=== PATIENT | male | born 1935 ===

== ENCOUNTER 2016-12-23 13:41 | Emergency (ER) | payer MEDICARE ==
[2016-12-23 13:48] VITALS: BP 149/63; PULSE 93; RESP 20; TEMP 98.1; O2SAT 96
[2016-12-23] MEDS ORDERED: Sodium Chloride 0.9% 500 ML IV STA (14:05)
--- NOTE | 2016-12-23 14:12 | ED PDOC ---
HPI: Seizure Time Seen by Provider: 12/23/16 14:02 Chief Complaint (Nursing): Seizure Chief Complaint (Provider): seizure History Per: Patient, EMS History/Exam Limitations: no limitations Quality Of Seizure: Generalized Additional Complaint(s): 81yo male brought in by EMS after a bystander witnesed patient experiencing a seizure. Described by EMS as generalized tonic clonic associated with 1x episode of incontinence. Patient was post-ictal on EMS arrival. Patient does not know what happened but states he is incompliance with medications. Denies any severe pain though reports body aches and headaches. No focal weakness or numbness. No blurred vision. No alcohol or drug use. Last meal 1300 today. Does not know name of PMD Past Medical History Reviewed: Historical Data, Nursing Documentation, Vital Signs Vital Signs: Last Vital Signs Temp 98.1 F 12/23/16 13:45 Pulse 93 H 12/23/16 13:45 Resp 20 12/23/16 13:45 BP 149/63 12/23/16 13:45 Pulse Ox 96 12/23/16 16:54 - Medical History PMH: HTN, Seizures - Family History Family History: States: Unknown Family Hx - Social History Current smoker - smoking cessation education provided: No Alcohol: None Drugs: Denies - Immunization History Hx Tetanus Toxoid Vaccination: No Hx Influenza Vaccination: No Hx Pneumococcal Vaccination: No - Home Medications Home Medications: Ambulatory Orders Medication Instructions Recorded Enalapril Maleate [Vasotec] 20 mg PO DAILY 09/09/16 NIFEdipine ER [Procardia XL] 90 mg PO DAILY 09/09/16 Simvastatin 40 mg PO HS 09/09/16 Terazosin [Hytrin] 2 mg PO DAILY 09/09/16 hydroCHLOROthiazide [Microzide] 50 mg PO DAILY 09/09/16 Carbamazepine 200 mg PO TID 30 Days 12/23/16 - Allergies Allergies/Adverse Reactions: Allergies Allergy/AdvReac Type Severity Reaction Status Date / Time No Known Allergies Allergy Verified 12/23/16 13:45 Review of Systems ROS Statement: Except As Marked, All Systems Reviewed And Found Negative Eyes: Negative for: Vision Change Genitourinary Male: Positive for: Incontinence Neurological: Positive for: Seizures, Headache. Negative for: Weakness, Numbness Physical Exam - Reviewed Nursing Documentation Reviewed: Yes Vital Signs Reviewed: Yes - Physical Exam Appears: Positive for: Well, Non-toxic, No Acute Distress Head Exam: Positive for: NORMAL INSPECTION, NORMOCEPHALIC. Negative for: ATRAUMATIC (+pinpoint abrasion left upper forehead with moderate hematoma, minimal tenderness to palpation at site) Skin: Positive for: Warm, Dry Eye Exam: Positive for: EOMI, PERRL ENT: Positive for: Other (Tacky mucous membranes. Poor dentition) Neck: Positive for: Painless ROM (+mild tendereness to paraspinal. No midline bony tenderness. ) Cardiovascular/Chest: Positive for: Regular Rate, Rhythm Respiratory: Positive for: Normal Breath Sounds. Negative for: Rales, Rhonchi, Wheezing Gastrointestinal/Abdominal: Positive for: Soft. Negative for: Tenderness Extremity: Positive for: Normal ROM Neurologic/Psych: Positive for: Alert, Oriented (x). Negative for: Motor/ Sensory Deficits - Laboratory Results Result Diagrams: 12/23/16 14:19 12/23/16 14:19 - ECG O2 Sat by Pulse Oximetry: 96 (RA) Pulse Ox Interpretation: Normal Medical Decision Making Medical Decision Makin Impression: seizure Plan: CT Head w/o CT C-Spine w/o Labs IV Fluids reassess Previous chart demonstrates pt's PMD Dr Dione Blanca Pharmacist contacted pt's pharmacy and he has not filled carbamezepine since 2015 Reviewed previous charts and pt has multiple visits [facility] and [facility] for breakthrough seizure, last Aug 2016. On questioning he does not see a neurologist regularly. He sees his PMD Dr Blanca, but did not remember his name, only his office address. Pt refusing head ct. He is oriented x 3, understands risk of possible head bleed /fracture and refuses anyway. Potassium low on bloodwork, and there is no therapeutic carbamazepime level. Stressed importance of taking medication to prevent seizure and following up with PMD and Neurologist (referral to Dr Tellez given.) Disposition - Clinical Impression Clinical Impression: Seizure, Hypokalemia Counseled Patient/Family Regarding: Studies Performed, Diagnosis, Need For Followup, Rx Given - Disposition Referrals: [facility] [Outside] [facility] [Outside] Edy Tellez MD [Medical Doctor] - Disposition Time: 16:00 Condition: IMPROVED Additional Instructions: LLAMA A LA CLINICA POR LA MANANA A HACER DONN NURY EN 2-3 MOTTA. Y TAMBIEN POR LA MANANA LLAME A LA OFICINA DE DR TELLEZ (NEUROLOGO) A HACER DONN NURY EN 5-7 MOTTA. HAZEL TODOS CHRISTAL MEDICAMENTOS DIARIAMENTE. Prescriptions: Carbamazepine 200 mg PO TID 30 Days Instructions: Hypokalemia (ED), Epilepsy (ED) Print Language: TURKMEN Additional Comments - Additional Comments Additional Comments: Scribe Attestation: Documented by Matteo Veloz acting as a scribe for Leelee Weber MD. Provider Scribe Attestation: All medical record entries made by the Scribe were at my direction and personally dictated by me. I have reviewed the chart and agree that the record accurately reflects my personal performance of the history, physical exam, medical decision making, and the department course for this patient. I have also personally directed, reviewed, and agree with the discharge instructions and disposition.
[2016-12-23 14:25] LABS: BASO % 0.3 % (0.0-2.0); EOS # 0.1 K/uL (0.0-0.7); EOS % 2.4 % (0.0-4.0); HEMATOCRIT 41.8 % (35.0-51.0); LYMPH # 1.6 K/uL (1.0-4.3); LYMPH % 34.7 % (20.0-40.0); MEAN CELL VOLUME 99.1 fl (80.0-94.0); MEAN CORPUSCULAR HEMOGLOBIN 33.2 pg (27.0-31.0); MEAN CORPUSCULAR HGB CONC 33.5 g/dL (33.0-37.0); MEAN PLATELET VOLUME 9.3 fl (7.2-11.7); MONO # 0.6 K/uL (0.0-0.8); MONO % 13.3 % (0.0-10.0); NEUT # 2.3 K/uL (1.8-7.0); NEUT % 49.3 % (50.0-75.0); NRBC % 0.4 % (0.0-0.0); RED CELL DISTRIBUTION WIDTH 12.3 % (11.5-14.5); WHITE BLOOD COUNT 4.7 K/uL (4.8-10.8)
[2016-12-23 14:51] LABS: PARTIAL THROMBOPLASTIN TIME 25.4 SECONDS (23.3-32.5)
[2016-12-23 14:53] LABS: ALB/GLOB RATIO 1.3 (1.0-2.1); ALCOHOL SERUM < 10 mg/dl (0-10); ALKALINE PHOSPHATASE 87 U/L (38-126); ALT/SGPT 28 U/L (21-72); AST/SGOT 30 U/L (17-59); BILIRUBIN,TOTAL 1.5 mg/dl (0.2-1.3); BLOOD UREA NITROGEN 17 mg/dl (9-20); CALCIUM 9.5 mg/dL (8.4-10.2); CARBON DIOXIDE 28 mmol/L (22-30); CHLORIDE 96 mmol/L (98-107); GFR AFRICAN-AMERICAN > 60; GLUCOSE,RANDOM 101 mg/dL (75-110); MAGNESIUM 1.8 MG/DL (1.6-2.3); POTASSIUM 3.1 MMOL/L (3.6-5.0); SODIUM 137 mmol/l (132-148); TOTAL PROTEIN 7.5 G/DL (6.3-8.2)
[2016-12-23] MEDS ORDERED: K-Lyte 25meq EF Tab PO ONE ×2 (15:08→15:52)
[2016-12-23] MEDS ORDERED: TDAP Vaccine 0.5 mL Syr IM ONE (15:55)
--- NOTE | 2016-12-24 08:24 | CARD ---
APPROVED REPORT EKG Measurement Heart [id number] <Conclusion> Normal sinus rhythm Nonspecific T wave abnormality Abnormal ECG
== END 2016-12-23 17:41 | disposition home or self-care (01) ==
LOC: H.ER 13:41
DX: R56.9 Unspecified convulsions (principal); E87.6 Hypokalemia; I10 Essential (primary) hypertension; Z23 Encounter for immunization
CPT/HCPCS: 80053; 80156; 82550; 82948; 83605; 83735; 84100; 84484; 85025; 85610; 85730; 90471; 90715; 93005; 99285; G0480; J7040

== ENCOUNTER 2017-03-16 14:02 | Emergency (ER) | payer MEDICARE ==
--- NOTE | 2017-03-16 14:39 | ED PDOC ---
HPI: Seizure Time Seen by Provider: 03/16/17 14:11 Chief Complaint (Nursing): Seizure Chief Complaint (Provider): Seizure History Per: EMS History/Exam Limitations: no limitations Recent Seizure Activity Began: Just Before Arrival Additional History Per: Patient Additional Complaint(s): Rojas Chiu is a 81 year old male, with a past medical history of seizures, who was brought to the emergency department via EMS after bystanders called for a witnessed seizure while [place]. EMS report finding the patient alert and awake on arrival. Patient is unsure why he is in the ED and has no recollection of experiencing a seizure. He denies any headache or chest pain. Patient states he takes his daily medication for seizures but is unsure of the name. PMD: Dr Blanca Past Medical History Reviewed: Historical Data, Nursing Documentation, Vital Signs Vital Signs: Last Vital Signs Temp 98.9 F 03/16/17 14:03 Pulse 104 H 03/16/17 14:03 Resp 18 03/16/17 14:03 BP 131/89 03/16/17 14:03 Pulse Ox 98 03/16/17 15:34 - Medical History PMH: HTN, Seizures - Surgical History Surgical History: No Surg Hx - Family History Family History: States: Unknown Family Hx - Immunization History Hx Tetanus Toxoid Vaccination: No Hx Influenza Vaccination: No Hx Pneumococcal Vaccination: No - Home Medications Home Medications: Ambulatory Orders Medication Instructions Recorded Enalapril Maleate [Vasotec] 20 mg PO DAILY 09/09/16 NIFEdipine ER [Procardia XL] 90 mg PO DAILY 09/09/16 Simvastatin 40 mg PO HS 09/09/16 Terazosin [Hytrin] 2 mg PO DAILY 09/09/16 hydroCHLOROthiazide [Microzide] 50 mg PO DAILY 09/09/16 Carbamazepine 200 mg PO TID 30 Days 12/23/16 - Allergies Allergies/Adverse Reactions: Allergies Allergy/AdvReac Type Severity Reaction Status Date / Time No Known Allergies Allergy Verified 12/23/16 13:45 Review of Systems ROS Statement: Except As Marked, All Systems Reviewed And Found Negative Cardiovascular: Negative for: Chest Pain Neurological: Positive for: Seizures (according to EMS). Negative for: Weakness , Headache Physical Exam - Reviewed Nursing Documentation Reviewed: Yes Vital Signs Reviewed: Yes - Physical Exam Appears: Positive for: Well, Non-toxic, No Acute Distress Head Exam: Positive for: ATRAUMATIC, NORMAL INSPECTION, NORMOCEPHALIC Skin: Positive for: Normal Color, Warm, Dry Eye Exam: Positive for: EOMI, Normal appearance, PERRL ENT: Positive for: Normal ENT Inspection Neck: Positive for: Normal, Painless ROM, Supple Cardiovascular/Chest: Positive for: Regular Rate, Rhythm. Negative for: Tachycardia Respiratory: Positive for: Normal Breath Sounds. Negative for: Respiratory Distress Gastrointestinal/Abdominal: Positive for: Normal Exam, Soft. Negative for: Tenderness Extremity: Positive for: Normal ROM Neurologic/Psych: Positive for: Alert, fabrication inspector II-XII (intact), Oriented (x3), Gait (steady). Negative for: Motor/Sensory Deficits, Aphasia - Laboratory Results Result Diagrams: 03/16/17 14:40 03/16/17 14:40 - ECG ECG: Positive for: Interpreted By Me, Viewed By Me ECG Rhythm: Positive for: Normal QRS, Normal ST Segment, Sinus Rhythm. Negative for: ST/T Changes Rate: 68 O2 Sat by Pulse Oximetry: 98 (RA) Pulse Ox Interpretation: Normal Medical Decision Making Medical Decision Making: Initial Impression: Seizure with differential of syncope Initial Plan: --EKG --Basic Metabolic Panels --Carbamazepine --Magnesium --CBC w/ differential --reevaluation Pt is stable in ED. No more seizures. There are no medical conditions requiring further management in ED or in the hospital. Pt is AAOx3. Pt was intstructed to fill his rx and follow up with his PCP. Scribe Attestation: Documented by Ashkan Moreno, acting as a scribe for Zoë Aggarwal MD Provider Scribe Attestation: All medical record entries made by the Scribe were at my direction and personally dictated by me. I have reviewed the chart and agree that the record accurately reflects my personal performance of the history, physical exam, medical decision making, and the department course for this patient. I have also personally directed, reviewed, and agree with the discharge instructions and disposition. Disposition - Clinical Impression Clinical Impression: Recurrent seizures - Patient ED Disposition Is Patient to be Admitted: No Doctor Will See Patient In The: Office Counseled Patient/Family Regarding: Studies Performed, Diagnosis, Need For Followup - Disposition Referrals: Jamal M[facility] [Outside] Disposition: Routine/Home Disposition Time: 16:47 Condition: GOOD Additional Instructions: Take your medications as instructed. Follow up with your doctor in 2-3 days. Lacie jocelyne medicamentos segn las instrucciones. Segue con jorge mdico en 2-3 dugan. Instructions: Epilepsy (ED) Print Language: KUWAITI
[2017-03-16 14:57] LABS: BASO % 0.5 % (0.0-2.0); EOS # 0.2 K/uL (0.0-0.7); EOS % 3.5 % (0.0-4.0); HEMOGLOBIN 13.1 g/dL (12.0-18.0); LYMPH % 21.6 % (20.0-40.0); MEAN CELL VOLUME 99.3 fl (80.0-94.0); MEAN CORPUSCULAR HEMOGLOBIN 32.6 pg (27.0-31.0); MEAN CORPUSCULAR HGB CONC 32.8 g/dL (33.0-37.0); MEAN PLATELET VOLUME 8.7 fl (7.2-11.7); MONO # 0.5 K/uL (0.0-0.8); MONO % 10.2 % (0.0-10.0); NEUT % 64.2 % (50.0-75.0); NRBC % 0.1 % (0.0-0.0); RBC 4.03 Mil/uL (4.40-5.90); RED CELL DISTRIBUTION WIDTH 12.5 % (11.5-14.5); WHITE BLOOD COUNT 4.7 K/uL (4.8-10.8)
[2017-03-16 15:24] LABS: BLOOD UREA NITROGEN 13 mg/dl (9-20); CALCIUM 9.2 mg/dL (8.4-10.2); GFR AFRICAN-AMERICAN > 60; GFR NON-AFRICAN AMERICAN > 60; MAGNESIUM 1.7 MG/DL (1.6-2.3)
[2017-03-16] MEDS ORDERED: Potassium Chloride 20 mEq ER Tab PO ONE ×2 (16:09→17:21)
[2017-03-16 17:43] VITALS: BP 137/82; PULSE 79; RESP 19; TEMP 98.8; O2SAT 99
--- NOTE | 2017-03-17 12:41 | CARD ---
APPROVED REPORT EKG Measurement Heart [id number] MD [id number] <Conclusion> Normal sinus rhythm Moderate voltage criteria for LVH, may be normal variant Borderline ECG
== END 2017-03-16 17:44 | disposition home or self-care (01) ==
LOC: H.ER 14:02
DX: G40.909 Epilepsy, unspecified, not intractable, without status epilepticus (principal); I10 Essential (primary) hypertension